=== PATIENT | female | born 1980 ===

== ENCOUNTER 2021-07-21 14:57 | Outpatient (CLI) | payer OTHER, SELFPAY ==
[2021-07-21 15:44] LABS: Basophils % 0.4 %; Eosinophils # 0.2 10^3/uL (0.0-0.8); Eosinophils % 2.3 %; Hematocrit 25.7 % (37.0-47.0); Hemoglobin 8.3 g/dL (11.5-15.3); Lymphocytes # 1.8 10^3/uL (0.8-4.8); Lymphocytes % 22.5 %; Mean Corpuscular HGB Conc 32.3 g/dL (30.0-36.0); Mean Corpuscular Hemoglobin 34.3 pg (28.0-34.0); Mean Corpuscular Volume 106.2 fl (81-99); Monocytes # 0.3 10^3/uL (0.2-0.9); Monocytes % 3.8 %; Neutrophils # 5.55 10^3/uL (1.8-7.7); Neutrophils % 70.6 %; Nucleated Red Blood Cells % 0 %; Platelet Count 257 10^3/cmm (130-400); Red Blood Count 2.42 10^6/uL (4.1-5.3); Red Cell Distribution Width 17.7 % (12.1-15.1); White Blood Count 7.9 10^3/uL (4.0-10.0)
[2021-07-21 16:24] LABS: Alanine Aminotransferase 17 U/L (0-33); Albumin Level 2.6 g/dL (3.5-5.2); Alkaline Phosphatase 131 IU/L (35-105); Anion Gap 12.2 (5-19); Aspartate Amino Transferase 16 U/L (0-32); Blood Urea Nitrogen 9 mg/dL (6-20); C Reactive Protein 7.7 mg/L (0.0-4.9); Calcium 7.7 mg/dL (8.5-10.5); Carbon Dioxide 20 mmol/L (22-29); Chloride 112 mmol/L (98-107); Creatine Phosphokinase 51 U/L (26-192); Globulin 2.7 g/dL (1.3-4.6); Glomerular Filtration Rate 49.5 mL/min (90-130); Glucose 89 mg/dL (65-115); Osmolality Calculated 290 mOsm/kg (285-295); Potassium 3.2 mmol/L (3.5-5.1); Sodium 141 mmol/L (136-145); Total Bilirubin 0.2 mg/dL (0.15-1.2); Total Protein 5.3 g/dL (6.6-8.7)
== END 2021-07-21 14:58 | disposition home or self-care (01) ==
LOC: LAB 15:08
PROVIDERS: Visit Provider Internal Medicine
DX: K31.1 Adult hypertrophic pyloric stenosis (principal)
CPT/HCPCS: 80053; 82550; 85025; 86140

== ENCOUNTER 2021-07-28 15:00 | Outpatient (CLI) | payer OTHER, SELFPAY ==
[2021-07-28 15:43] LABS: Basophils % 0.2 %; Eosinophils # 0.1 10^3/uL (0.0-0.8); Eosinophils % 0.9 %; Hematocrit 22.1 % (37.0-47.0); Hemoglobin 7.1 g/dL (11.5-15.3); Lymphocytes # 1.5 10^3/uL (0.8-4.8); Lymphocytes % 27.1 %; Mean Corpuscular HGB Conc 32.1 g/dL (30.0-36.0); Mean Corpuscular Hemoglobin 33.8 pg (28.0-34.0); Mean Corpuscular Volume 105.2 fl (81-99); Mean Platelet Volume 10.8 fL (7.4-10.4); Monocytes # 0.2 10^3/uL (0.2-0.9); Monocytes % 3.7 %; Neutrophils # 3.64 10^3/uL (1.8-7.7); Neutrophils % 67.7 %; Nucleated Red Blood Cells % 0 %; Platelet Count 150 10^3/cmm (130-400); Red Cell Distribution Width 16.2 % (12.1-15.1); White Blood Count 5.4 10^3/uL (4.0-10.0)
[2021-07-28 16:20] LABS: Blood Urea Nitrogen 5 mg/dL (6-20); Calcium 7.1 mg/dL (8.5-10.5); Carbon Dioxide 22 mmol/L (22-29); Chloride 106 mmol/L (98-107); Ferritin 162 ng/mL (15-150); Glomerular Filtration Rate 41.2 mL/min (90-130); Glucose 90 mg/dL (65-115); Iron 80 ug/dL (37-145); Magnesium 1.2 mg/dL (1.7-2.3); Osmolality Calculated 285 mOsm/kg (285-295); Prealbumin 12.6 mg/dL (20-40); Sodium 139 mmol/L (136-145); Total Iron Binding Capacity 131 mcg/dl; Unsaturated Iron Binding 51 ug/dL (112-347)
== END 2021-07-28 15:01 | disposition home or self-care (01) ==
LOC: LAB 15:10
PROVIDERS: Visit Provider Internal Medicine
DX: A41.9 Sepsis, unspecified organism (principal)
CPT/HCPCS: 80048; 82728; 83540; 83550; 83735; 84134; 84443; 85025